=== PATIENT | female | born 1970 | race American Indian/Alaskan Native ===

== ENCOUNTER 2019-02-02 18:25 | Emergency (ER) | payer OTHER ==
[2019-02-02 18:47] VITALS: BP 151/94
[2019-02-02 19:14] LABS: HCG Qualitative,Urine Negative (Negative)
[2019-02-02 19:15] LABS: Bilirubin,Urine NEG (Negative); Blood,Urine SM (Negative); Color,Urine Yellow (Yellow); Mucus,Urine FEW /HPF; Protein,Urine <15 mg/dL mg/dL (Negative); Urobilinogen,Urine < 2.0 mg/dL (<2.0)
[2019-02-03] MEDS ORDERED: ZOFRAN ODT PO STA (01:04)
[2019-02-03] MEDS ORDERED: NORCO 5/325 PO STA (01:04)
--- NOTE | 2019-02-03 01:06 | Emergency Department Report ---
ED Abdominal Pain HPI - General Chief Complaint: Abdominal Pain Stated Complaint: LT SIDE PAIN Time Seen by Provider: 02/03/19 00:09 Source: patient Mode of arrival: Ambulatory Limitations: No Limitations - History of Present Illness MD Complaint: abdominal pain, flank pain Location: LLQ, suprapubic, L flank Migration to: suprapubic (left adnexa) Quality: aching Consistency: intermittent Improves With: nothing Worsens With: movement Associated Symptoms: denies: vomiting, diarrhea, fever, dysuria, hematemesis, hematuria, anorexia - Related Data Previous Rx's Medication Instructions Recorded Last Taken Type Ketorolac [Toradol] 10 mg PO Q6H PRN #14 tablet 02/03/19 Unknown Rx Allergies Allergy/AdvReac Type Severity Reaction Status Date / Time No Known Allergies Allergy Unverified 02/02/19 18:29 ED Review of Systems ROS: Stated complaint: LT SIDE PAIN Other details as noted in HPI Comment: All other systems reviewed and negative ED Past Medical Hx - Past Medical History Previous Medical History?: No - Surgical History Past Surgical History?: Yes Additional Surgical History: - Social History Smoking Status: Never Smoker Substance Use Type: Alcohol - Medications Home Medications: Home Medications Medication Instructions Recorded Confirmed Last Taken Type Ketorolac [Toradol] 10 mg PO Q6H PRN #14 tablet 02/03/19 Unknown Rx ED Physical Exam - General Limitations: No Limitations General appearance: alert, in no apparent distress - Head Head exam: Present: atraumatic, normocephalic - Eye Eye exam: Present: normal appearance - ENT ENT exam: Present: mucous membranes moist - Neck Neck exam: Present: normal inspection - Respiratory Respiratory exam: Present: normal lung sounds bilaterally. Absent: respiratory distress - Cardiovascular Cardiovascular Exam: Present: regular rate, normal rhythm. Absent: systolic murmur, diastolic murmur, rubs, gallop - GI/Abdominal GI/Abdominal exam: Present: soft, tenderness (left adnexal region and also some discomfort with left CVA tenderness), normal bowel sounds - Extremities Exam Extremities exam: Present: normal inspection, normal capillary refill - Back Exam Back exam: Present: normal inspection. Absent: paraspinal tenderness, vertebral tenderness - Neurological Exam Neurological exam: Present: alert, oriented X3 - Psychiatric Psychiatric exam: Present: normal affect, normal mood - Skin Skin exam: Present: warm, dry, intact, normal color. Absent: rash ED Course Vital Signs 02/02/19 02/03/19 18:44 02:30 Temperature 98.3 F Pulse Rate 78 75 Respiratory 18 16 Rate Blood Pressure 151/94 O2 Sat by Pulse 100 100 Oximetry ED Medical Decision Making - Radiology Data Radiology results: report reviewed (CT scan did reveal the myelomas and also punctate renal stones) - Medical Decision Making 48-year-old [id number] female who since Friday department complaining of abdominal pain. Pain. 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 Her laboratory findings were stable and essentially benign. No acute or emergent process at this present time. Advised to return to the emergency department. Also discussed importance of following up with [facility] [employer] for definitive management and treatment these findings. Critical care attestation.: If time is entered above; I have spent that time in minutes in the direct care of this critically ill patient, excluding procedure time. ED Disposition Clinical Impression: Lower abdominal pain, Leiomyoma Disposition: TO HOME OR SELFCARE Is pt being admited?: No Does the pt Need Aspirin: No Condition: Stable Instructions: Abdominal Pain (ED) Prescriptions: Ketorolac [Toradol] 10 mg PO Q6H PRN #14 tablet PRN Reason: Pain Referrals: SHANE MARTE MD [Primary Care Provider] - 3-5 Days
--- NOTE | 2019-02-03 01:58 | Cat Scan Report ---
CT ABDOMEN AND PELVIS WITHOUT IV CONTRAST INDICATION: left flank and adnexa pain. COMPARISON: None available. TECHNIQUE: All CT scans at this facility use dose modulation, automated exposure control, iterative reconstructi on or weight based dosing, when appropriate, to reduce radiation dose to as low as reasonably achieva ble. FINDINGS: Lung Bases: Clear. Skeletal System: No acute abnormality. ABDOMEN: Liver: Normal. Gallbladder: Normal. Bile Ducts: Normal. Pancreas: Normal. Spleen: Normal. Adrenals: Normal. Right Kidney: There is a punctate 1 mm nonobstructing calyceal stone, right kidney is otherwise unrem arkable. Left Kidney: Normal. Stomach and Bowel: Normal. Lymph Nodes: No significant adenopathy. Aorta: No significant abnormality. Additional Findings: None. PELVIS: Colon: Normal aside from diverticulosis. Urinary Bladder and Distal Ureters: Normal. Appendix: Normal. Lymph Nodes: No significant adenopathy. Additional Findings: The uterus is enlarged and heterogeneous, likely due to the presence of multiple fibroids. IMPRESSION: 1. Within the limitations of non-contrast technique, no acute process in the abdomen or pelvis. 2. Enlarged, leiomyomatous uterus. 3. Punctate nonobstructing right renal stone. No ureteral stones, no hydronephrosis. Signer Name: Felipe Alvarado MD Signed: 02/03/2019 1:54 AM Workstation Name: [id number]
== END 2019-02-03 02:30 | disposition home or self-care (01) ==
LOC: ED 18:25
DX: R10.32 Left lower quadrant pain (principal); Z98.890 Other specified postprocedural states
CPT/HCPCS: 74176; 81001; 81025; 99284; Q0162